=== PATIENT | female | born 1980 | race African-American/Black ===

== ENCOUNTER 2018-05-08 03:04 | Emergency (ER) | payer MEDICAID ==
[~2018-05-08] VITALS: Ht 162.6 cm; Wt 89.4 kg
--- NOTE | 2018-05-08 03:05 | NUR ---
ED Nurse Note: RECIEVED PT BIBA FROM HOME WITH C/O SEVERE,SUDDEN ABDOMINAL PAIN WITH NAUSEA AND VOMITING, PT IS YELLING AND SHOUTING AT STAFF AND VERY NON-COOPERATIVE, PT WITH SPOUSE WHOM WAS ESCORTED OUT OF FACILITY BY SECURITY, PT LYING IN BED ON STOMACH, WILL NOT ANSWER QUESTIONS ONLY STATES "I NEED SOME MOTHERFUCING MEDICINE", PT REFUSES TO GOWN, PLACED ON MONITORING, PT ALSO REFUSES TO GIVE URINE, WILL RESUME CARE ORDERED AND CONTINUE TO ATTEMT TO ASSESS AND PROVIDE CARE ORDERED. PT IS VERY ANXIOUS AND DIFFICULT TO CONSOLE.
--- NOTE | 2018-05-08 03:09 | Emergency Room Report ---
History of Present Illness General Chief Complaint: Abdominal Pain Source: Patient, EMS Present Illness HPI Is a 38-year-old female with no past medical history. She presents with chief complaint abdominal pain with nausea vomiting and diarrhea. Onset was visible. 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 Around 7 PM she developed abdominal pain with nausea vomiting and diarrhea. Vomiting is nonbloody and nonbilious. Diarrhea is watery. Pain is sharp in nature. 10 out of 10. No radiation. Diffuse. Nothing made it better. Eating or drinking makes it worse. Came in by EMS. Allergies: Coded Allergies: No Known Allergies (Unverified , 05/08/18) Patient History Past Medical History: see triage record, old chart reviewed Past Surgical History: none Pertinent Family History: none Social History: Denies: smoking Last Menstrual Period: 04/17/18 Now: No Immunizations: other Reviewed Nursing Documentation: PMH: Agreed; PSxH: Agreed Nursing Documentation-PMH Past Medical History: No Stated History Review of Systems Eye: Denies: eye pain, blurred vision ENT: Denies: ear pain, nose congestion, throat swelling Respiratory: Denies: cough, shortness of breath Cardiovascular: Denies: chest pain, palpitations Gastrointestinal: Reports: abdominal pain, diarrhea, nausea, vomiting Musculoskeletal: Denies: back pain, joint pain Skin: Denies: rash Neurological: Denies: headache, numbness Endocrine: Denies: increased thirst, increased urine Hematologic/Lymphatic: Denies: easy bruising All Other Systems: negative except mentioned in HPI Physical Exam Vital Signs Date Time Temp Pulse Resp B/P (MAP) Pulse Ox O2 Delivery O2 Flow Rate FiO2 05/08/18 03:00 98.2 86 16 132/68 99 Room Air vitals normal Sp02 EP Interpretation: reviewed, normal General Appearance: well appearing, no apparent distress, alert Head: normocephalic, atraumatic Eyes: bilateral eye PERRL, bilateral eye EOMI ENT: hearing grossly normal, normal pharynx Neck: full range of motion, supple, no meningismus Respiratory: chest non-tender, lungs clear, normal breath sounds Cardiovascular #1: regular rate, rhythm, no murmur Gastrointestinal: no mass, no organomegaly, no bruit, non-distended, tenderness - Diffuse, decreased bowel sounds Musculoskeletal: back normal, gait/station normal, normal range of motion Psychiatric: mood/affect normal Skin: warm/dry Medical Decision Making Diagnostic Impression: Primary Impression: Abdominal pain Qualified Codes: R10.84 - Generalized abdominal pain Additional Impression: Nausea vomiting and diarrhea ER Course Patient presents with abdominal pain with nausea vomiting diarrhea. This may be a gastroenteritis secondary to viral illness. Doubtful poisoning. Could also be cyclic vomiting syndrome. Patient very histrionic and yelling at staff. She refuse to give a urine sample. Labs unremarkable. CT negative. Pt felt better. Wants something for cough. said that she had cough for 2 weeks. We'll discharge home. Lab Results Impression labs normal CT/MRI/US Diagnostic Results CT/MRI/US Diagnostic Results : Imaging Test Ordered: CT abdomen Impression negative per radiologist Last Vital Signs Date Time Temp Pulse Resp B/P (MAP) Pulse Ox O2 Delivery O2 Flow Rate FiO2 05/08/18 03:00 98.2 86 16 132/68 99 Room Air Status: improved Disposition: HOME, SELF-CARE Condition: Stable Scripts Guaifenesin/Codeine Phos* (ROBITUSSIN AC*) 118 Ml Liquid 5 ML ORAL Q6H PRN for For Cough, #118 ML 0 Refills Prov: Gautam Flores MD 05/08/18 Ondansetron (Zofran) 4 Mg Tablet 4 MG ORAL Q6H PRN for Nausea & Vomiting, #10 TAB 0 Refills Prov: Gautam Flores MD 05/08/18 Ibuprofen* (MOTRIN*) 600 Mg Tablet 600 MG ORAL THREE TIMES A DAY, #30 TAB 0 Refills Prov: Gautam Flores MD 05/08/18 Patient Instructions: Abdominal Pain, Adult Additional Instructions: Advanced diet as tolerated. Follow with your DrJoshua in 2 to 3 days. Return if symptom worsen. Gautam Flores MD May 08, 2018 03:08
[2018-05-08] MEDS ORDERED: HYDROmorphone 1mg/ml Carpuject IVP ONE (03:15)
[2018-05-08 03:31] LABS: BASOPHILS % (AUTO) 1.1 % (0.0-2.0); EOSINOPHILS % (AUTO) 0.6 % (0.0-3.0); HEMATOCRIT 38.5 % (37.0-47.0); HEMOGLOBIN 13.1 G/DL (12.0-16.0); LYMPHOCYTES % (AUTO) 19.7 % (20.0-45.0); MEAN CORPUSCULAR VOLUME 83 FL (80-99); MONOCYTES % (AUTO) 4.8 % (1.0-10.0); NEUTROPHILS % (AUTO) 73.8 % (45.0-75.0); PLATELET COUNT 321 K/UL (150-450); RED BLOOD COUNT 4.62 M/UL (4.20-5.40); RED CELL DISTRIBUTION WIDTH 11.1 % (11.6-14.8); WHITE BLOOD COUNT 11.2 K/UL (4.8-10.8)
[2018-05-08 03:48] LABS: ALANINE AMINOTRANSFERASE 19 U/L (12-78); ALBUMIN 3.9 G/DL (3.4-5.0); ALBUMIN/GLOBULIN RATIO 1.1 (1.0-2.7); ALKALINE PHOSPHATASE 62 U/L (46-116); ANION GAP 10 mmol/L (5-15); ASPARTATE AMINO TRANSFERASE 19 U/L (15-37); BILIRUBIN,TOTAL 0.6 MG/DL (0.2-1.0); BLOOD UREA NITROGEN 11 mg/dL (7-18); CALCIUM 9.1 MG/DL (8.5-10.1); CARBON DIOXIDE 26 MMOL/L (21-32); CHLORIDE 105 MMOL/L (98-107); CREATININE 0.8 MG/DL (0.55-1.30); POTASSIUM 3.4 MMOL/L (3.5-5.1); SODIUM 141 MMOL/L (136-145)
[2018-05-08] MEDS ORDERED: Morphine Sulfate 4mg/ml Inj (IV/IM USE ONLY) IVP ONE ×2 (04:00→04:45)
[2018-05-08] MEDS ORDERED: Ketorolac 30mg Inj IV ONE (04:00)
--- NOTE | 2018-05-08 04:05 | Diagnostic Imaging Report ---
EXAM: CT Abdomen and Pelvis Without Intravenous Contrast CLINICAL HISTORY: ABD PAIN TECHNIQUE: Axial computed tomography images of the abdomen and pelvis without intravenous contrast. CTDI is 24.47 mGy and DLP is 1188.20 mGy-cm. One or more of the following dose reduction techniques were used: automated exposure control, adjustment of the mA and/or kV according to patient size, use of iterative reconstruction technique. COMPARISON: No relevant prior studies available. FINDINGS: Lung bases: Unremarkable. No mass. No consolidation. ABDOMEN: Liver: Unremarkable. Gallbladder and bile ducts: Unremarkable. No calcified stones. No ductal dilation. Pancreas: Unremarkable. No ductal dilation. Spleen: Unremarkable. No splenomegaly. Adrenals: Unremarkable. No mass. Kidneys and ureters: Unremarkable. No obstructing stones. No hydronephrosis. Stomach and bowel: Unremarkable. No obstruction. No mucosal thickening. PELVIS: Appendix: No findings to suggest acute appendicitis. Bladder: Unremarkable. No stones. Reproductive: Unremarkable as visualized. ABDOMEN and PELVIS: Intraperitoneal space: Unremarkable. No free air. No significant fluid collection. Bones/joints: No acute fracture. No dislocation. Soft tissues: Unremarkable. Vasculature: Unremarkable. No abdominal aortic aneurysm. Lymph nodes: Unremarkable. No enlarged lymph nodes. IMPRESSION: No acute or inflammatory disease or bowel obstruction.
--- NOTE | 2018-05-08 04:15 | NUR ---
ED Nurse Note: PT WAS MEDICATED ORDERED, CONTINUES TO HAVE EMESIS, VERY SMALL AMOUNT OF CLEAR SPUTUM LIKE CONTENTS, PT STATES MEDS NOT EFFECTIVE, RECIEVED ORDERS FOR MORE PAIN MEDS, WILL RE-MEDICATE ORDERED AND CONTINUE TO CLOSELY MONTIOR. HAD TO GO DOWN TO IMAGING DEPARTMENT, PT WAS BEING NON-COOPERATIVE AND WOULD NOT GET ON TABLE FOR CT-SCAN, PT STATES TO GIVE HER MORE MEDICINE FIRST, MD AWARE, NO NEW ORDERS GIVEN, WILL CONTINUE TO CLOSELY MONITOR.
[2018-05-08 04:30] VITALS: BP 136/88
[2018-05-08] MEDS ORDERED: ZOFRAN4 MG ORAL (04:43)
[2018-05-08] MEDS ORDERED: IBUPROFEN600 MG ORAL (04:43)
[2018-05-08] MEDS ORDERED: Metoclopramide 10mg/2ml Inj ONE (04:45)
[2018-05-08] MEDS ORDERED: Metoclopramide 10mg/2ml Inj IVP ONE (04:45)
[2018-05-08 05:30] VITALS: BP 128/84
--- NOTE | 2018-05-08 05:30 | NUR ---
ED Nurse Note: PT MEDICATED ORDERED, PT IN BED SLEEPING, AROUSED FOR URINE SAMPLE AND PT IMMEDIATELY ASKING FOR MORE PAIN MEDS, STATING THEY DONT WORK, PT HAS PATENT IV LINE WITH FLUIDS INFUSING ORDERED, PT DRINKING WATER AT BEDSIDE WHEN INSTRUCTED NOT TO DO SO, THEN PT STARTS SCREAMING IN PAIN AND HAVING EMESIS, PT WRENCHING BUT NO EMESIS IN BAG, PT REFUSED TO GIVE URINE SAMPLE AGAIN, INFORMED , P[T ALSO REFUSES CATH, SUDDENNLY PT GAVE URINE WHEN TOLD SHE WILL HAVE TO LEAVE IF CONTINUING TO REFUSE, PT AMBULATES WELL WITH STEADY GAIT, URINE SAMPLE SENT, PT RESTING QUIETLY IN BED.
[2018-05-08 05:38] LABS: APPEARANCE,URINE CLOUDY; BILIRUBIN, URINE NEGATIVE (NEGATIVE); COLOR,URINE PALE YELLOW; GLUCOSE, URINE (UA) NEGATIVE (NEGATIVE); KETONES,URINE 3+ (NEGATIVE); LEUKOCYTE ESTERASE ,URINE NEGATIVE (NEGATIVE); NITRITE,URINE NEGATIVE (NEGATIVE); PH,URINE 8 (4.5-8.0); PROTEIN,URINE NEGATIVE (NEGATIVE); UROBILINOGEN,URINE NORMAL MG/DL (0.0-1.0)
[2018-05-08] MEDS ORDERED: GUAIFENESIN-CO118 M1 ORAL (06:09)
[2018-05-08 06:15] VITALS: BP 125/75
--- NOTE | 2018-05-08 06:15 | NUR ---
ED Nurse Note: pt being d/c to home, pt is more calm and relaxed, states feels much better now, pain level at 3/10, nausea resolved, pt denies cp, sob or any other complaints or discomforts, pt with spouse to drive her, pt is ambulatory, given f/u info, after care instrucitons and re-verbalizes proper medication administration, pt iv line and armband removed without complications, nad noted during to home.
[2018-05-08 06:25] VITALS: BP 125/75
== END 2018-05-08 06:30 | disposition home or self-care (01) ==
LOC: EDBD 03:04 → EMR 03:59
DX: R10.9 Unspecified abdominal pain (principal); R11.2 Nausea with vomiting, unspecified; R19.7 Diarrhea, unspecified
CPT/HCPCS: 36415; 74176; 80053; 80307; 81003; 81025; 83690; 85025; 96361; 96374; 96375; 96376; 99284; J1170; J1885; J2270; J2405; J2765

== ENCOUNTER 2018-05-10 14:04 | Emergency (ER) | payer MEDICAID ==
[~2018-05-10] VITALS: Ht 162.6 cm; Wt 94.8 kg
[~2018-05-10 14:04] MED LIST: GUAIFENESIN-CO118 M1 ORAL; IBUPROFEN600 MG ORAL; ZOFRAN4 MG ORAL
--- NOTE | 2018-05-10 14:17 | NUR ---
ED Nurse Note: Pt came into the ER w/ n,v,d. A + O x4. Ambulatory. Skin warm to touch. Complaining of 10/10 pain non radiatning in the abdomen.
[2018-05-10 14:19] VITALS: BP 110/75
--- NOTE | 2018-05-10 14:34 | Emergency Room Report ---
History of Present Illness General Chief Complaint: Abdominal Pain Source: Patient Present Illness HPI 38-year-old female presents to the emergency department with 2 complaints. First complaint is persistent abdominal pain that is lower in the abdomen with cramping sensation and vaginal discharge times one week. Reports her symptoms are not resolving she also reports moderate nausea and several episodes of diarrhea. Patient denies blood in the stool or black tarry stools. She denies fevers and chills. She reports nasal congestion, and secondary complaint of right ear pain and tenderness with cough. She reports low grade fevers at home. She denies neck pain/stiffness, photophobia or headache. She denies urinary frequency, urgency or hematuria. He also denies . Denies recent travel or ill contacts. Allergies: Coded Allergies: No Known Allergies (Unverified , 05/10/18) Patient History Past Medical History: see triage record Past Surgical History: none Pertinent Family History: none Last Menstrual Period: 30 Apr 2018. Nursing Documentation-[facility] Hx Asthma: Yes Review of Systems All Other Systems: negative except mentioned in HPI Physical Exam Vital Signs Date Time Temp Pulse Resp B/P (MAP) Pulse Ox O2 Delivery O2 Flow Rate FiO2 05/10/18 14:08 100.2 92 16 115/69 99 Room Air 05/10/18 14:19 100 Medical Decision Making Diagnostic Impression: Primary Impression: Acute pelvic inflammatory disease (PID) Additional Impressions: Bacterial vaginosis Otitis externa Qualified Codes: H60.501 - Unspecified acute noninfective otitis externa, right ear ER Course Pt. presents to the ED c/o [ ] Ddx considered but are not limited to Diverticulitis, acute appy, diarrhea,UC, PUD, GE, pancreatitis, gallstone, STI, UTI, /ectopic, TOA, PID just to name a few. Vital signs: are WNL, pt. is afebrile H&PE are most consistent with PID ORDERS: -CBC, CMP, lipase, UA-- Unremarkable -hcg: Negative -UDS: positive for THC -Wet mount: few clue cells, moderate bacteria, no yeast, no trich. ED INTERVENTIONS: -- 1000NS, zantac 50mg, and zofran 4mg. -250mg Rocephin IM DISCHARGE: At this time pt. is stable for d/c to home. Will provide printed patient care instructions, and any necessary prescriptions. Care plan and follow up instructions have been discussed with the patient prior to discharge. Labs Test 05/10/18 14:28 05/10/18 14:37 Urine Color Pale yellow Urine Appearance Cloudy Urine pH 8 (4.5-8.0) Urine Specific [place] 1.005 (1.005-1.035) Urine Protein Negative (NEGATIVE) Urine Glucose (UA) Negative (NEGATIVE) Urine Ketones Negative (NEGATIVE) Urine Blood Negative (NEGATIVE) Urine Nitrite Negative (NEGATIVE) Urine Bilirubin Negative (NEGATIVE) Urine Urobilinogen Normal MG/DL (0.0-1.0) Urine Leukocyte Esterase Negative (NEGATIVE) Urine Opiates Screen Negative (NEGATIVE) Urine Barbiturates Screen Negative (NEGATIVE) Phencyclidine (PCP) Screen Negative (NEGATIVE) Urine Amphetamines Screen Negative (NEGATIVE) Urine Benzodiazepines Screen Negative (NEGATIVE) Urine Cocaine Screen Negative (NEGATIVE) Urine Marijuana (THC) Screen Positive (NEGATIVE) White Blood Count 7.7 K/UL (4.8-10.8) Red Blood Count 4.28 M/UL (4.20-5.40) Hemoglobin 12.3 G/DL (12.0-16.0) Hematocrit 35.6 % (37.0-47.0) Mean Corpuscular Volume 83 FL (80-99) Mean Corpuscular Hemoglobin 28.8 PG (27.0-31.0) Mean Corpuscular Hemoglobin Concent 34.6 G/DL (32.0-36.0) Red Cell Distribution Width 11.6 % (11.6-14.8) Platelet Count 260 K/UL (150-450) Mean Platelet Volume 7.9 FL (6.5-10.1) Neutrophils (%) (Auto) 73.5 % (45.0-75.0) Lymphocytes (%) (Auto) 16.2 % (20.0-45.0) Monocytes (%) (Auto) 8.9 % (1.0-10.0) Eosinophils (%) (Auto) 0.2 % (0.0-3.0) Basophils (%) (Auto) 1.2 % (0.0-2.0) Sodium Level 140 MMOL/L (136-145) Potassium Level 3.0 MMOL/L (3.5-5.1) Chloride Level 103 MMOL/L (98-107) Carbon Dioxide Level 28 MMOL/L (21-32) Anion Gap 9 mmol/L (5-15) Blood Urea Nitrogen 5 mg/dL (7-18) Creatinine 0.9 MG/DL (0.55-1.30) Estimat Glomerular Filtration Rate > 60 mL/min (>60) Glucose Level 90 MG/DL (74-106) Calcium Level 8.8 MG/DL (8.5-10.1) Total Bilirubin 0.4 MG/DL (0.2-1.0) Aspartate Amino Transf (AST/SGOT) 20 U/L (15-37) Alanine Aminotransferase (ALT/SGPT) 19 U/L (12-78) Alkaline Phosphatase 59 U/L (46-116) Total Protein 7.1 G/DL (6.4-8.2) Albumin 3.6 G/DL (3.4-5.0) Globulin 3.5 g/dL Albumin/Globulin Ratio 1.0 (1.0-2.7) Lipase 103 U/L (73-393) Last Vital Signs Date Time Temp Pulse Resp B/P (MAP) Pulse Ox O2 Delivery O2 Flow Rate FiO2 05/10/18 14:19 100.1 77 20 110/75 100 Room Air 05/10/18 14:19 100 Disposition: HOME, SELF-CARE Condition: Stable Scripts Ondansetron Odt* (ZOFRAN ODT*) 4 Mg Tab.rapdis 4 MG BC EVERY 6 HOURS PRN for Nausea & Vomiting, #10 TAB 0 Refills Prov: Teresita Damon 05/10/18 Acetaminophen With Codeine (T#3) (TYLENOL #3 TAB*) Y Tab 1 TAB ORAL Q6H PRN for For Pain, #12 TAB Prov: Teresita Damon 05/10/18 Ciprofloxacin Hcl/Dexameth (CIPRODEX OTIC SUSPENSION) 7.5 Ml Drops.susp 4 DROP RIGHT EAR TWICE A DAY for 5 Days, #7.5 ML Prov: Teresita Damon 05/10/18 Metronidazole* (FLAGYL*) 500 Mg Tablet 500 MG ORAL BID for 7 Days, #14 TAB 0 Refills Prov: Teresita Damon 05/10/18 Doxycycline Monohydrate* (DOXYCYCLINE MONOHYDRATE*) 100 Mg Capsule 100 MG ORAL TWICE A DAY for 14 Days, #28 CAP 0 Refills Prov: Teresita Damon 05/10/18 Departure Forms: Return to Work Return to Work Date: May 14, 2018 Work Restrictions: No Heavy Lifting, No Prolonged Standing, Desk Work Only Return to Full Activity: May 17, 2018 Patient Instructions: Bacterial Vaginosis, Otitis Externa, [id number], Pelvic Inflammatory Disease, [id number] Additional Instructions: Take medications as directed. Follow up with a Primary Care Provider in 3-5 days, even if your symptoms have resolved. --Please review list of primary care clinics, if you do not already have a primary care provider Return sooner to ED if new symptoms occur, or current symptoms become worse. Do not drink alcohol, drive, or operate heavy machinery while taking Tylenol # 3 as this may cause drowsiness. - Please note that this Emergency Department Report was dictated using [email or web address] service supervisor technology software, occasionally this can lead to erroneous entry secondary to interpretation by the dictation equipment. Teresita Damon May 10, 2018 14:34
--- NOTE | 2018-05-10 14:36 | NUR ---
ED Nurse Note: urine has been collected and sent to lab. Awaiting results.
[2018-05-10 14:55] LABS: APPEARANCE,URINE CLOUDY; BILIRUBIN, URINE NEGATIVE (NEGATIVE); COLOR,URINE PALE YELLOW; GLUCOSE, URINE (UA) NEGATIVE (NEGATIVE); KETONES,URINE NEGATIVE (NEGATIVE); LEUKOCYTE ESTERASE ,URINE NEGATIVE (NEGATIVE); NITRITE,URINE NEGATIVE (NEGATIVE); PH,URINE 8 (4.5-8.0); PROTEIN,URINE NEGATIVE (NEGATIVE); UROBILINOGEN,URINE NORMAL MG/DL (0.0-1.0)
[2018-05-10 14:57] LABS: BASOPHILS % (AUTO) 1.2 % (0.0-2.0); EOSINOPHILS % (AUTO) 0.2 % (0.0-3.0); HEMATOCRIT 35.6 % (37.0-47.0); HEMOGLOBIN 12.3 G/DL (12.0-16.0); LYMPHOCYTES % (AUTO) 16.2 % (20.0-45.0); MEAN CORPUSCULAR VOLUME 83 FL (80-99); MONOCYTES % (AUTO) 8.9 % (1.0-10.0); NEUTROPHILS % (AUTO) 73.5 % (45.0-75.0); PLATELET COUNT 260 K/UL (150-450); RED BLOOD COUNT 4.28 M/UL (4.20-5.40); RED CELL DISTRIBUTION WIDTH 11.6 % (11.6-14.8); WHITE BLOOD COUNT 7.7 K/UL (4.8-10.8)
[2018-05-10 15:18] LABS: ANION GAP 9 mmol/L (5-15); BLOOD UREA NITROGEN 5 mg/dL (7-18); CALCIUM 8.8 MG/DL (8.5-10.1); CARBON DIOXIDE 28 MMOL/L (21-32); CHLORIDE 103 MMOL/L (98-107); CREATININE 0.9 MG/DL (0.55-1.30); SODIUM 140 MMOL/L (136-145)
[2018-05-10 15:22] LABS: ALANINE AMINOTRANSFERASE 19 U/L (12-78); ALBUMIN 3.6 G/DL (3.4-5.0); ALKALINE PHOSPHATASE 59 U/L (46-116); ASPARTATE AMINO TRANSFERASE 20 U/L (15-37); BILIRUBIN,TOTAL 0.4 MG/DL (0.2-1.0)
[2018-05-10] MEDS ORDERED: Ketorolac 30mg Inj IV ONE (15:45)
--- NOTE | 2018-05-10 15:56 | NUR ---
ED Nurse Note: Called lab to process wet mount.
--- NOTE | 2018-05-10 15:57 | NUR ---
ED Nurse Note: Oral temp of 100.5 F. Notified MI Lo.
[2018-05-10 16:16] VITALS: BP 105/66
[2018-05-10] MEDS ORDERED: Lidocaine 1% MPF 10mg/ml 5ml INJ ONE (16:30)
[2018-05-10] MEDS ORDERED: ONDANSETRON ODT4 MG BC (16:38)
[2018-05-10] MEDS ORDERED: DOXYCYCLINE MO100 MG ORAL (16:38)
[2018-05-10] MEDS ORDERED: CIPRODEX OTIC7.5 M1 RIGHT EAR (16:38)
[2018-05-10] MEDS ORDERED: METRONIDAZOLE500 MG ORAL (16:38)
[2018-05-10] MEDS ORDERED: ACETAMINOPHEN-1 EAC1 ORAL (16:38)
--- NOTE | 2018-05-10 16:54 | NUR ---
ED Nurse Note: Discharge instructions given to pt's parent. Answered all questions. Verbalized understanding. No acute distress noted. ID band and IV site removed. Left ER w/ steady gait and all belongings.
== END 2018-05-10 16:53 | disposition home or self-care (01) ==
LOC: EMR 16:04
DX: N73.9 Female pelvic inflammatory disease, unspecified (principal); N76.0 Acute vaginitis; H60.501 Unspecified acute noninfective otitis externa, right ear; F17.200 Nicotine dependence, unspecified, uncomplicated; R05 Cough; R09.81 Nasal congestion
CPT/HCPCS: 36415; 80053; 80307; 81003; 83690; 85025; 87210; 96361; 96372; 96374; 96375; 99284; J0696; J1885; J2405